=== PATIENT | female | born 1975 | race Caucasian/White ===

== ENCOUNTER → 2021-02-23 | Outpatient (CLI) | payer OTHER | LOC: KOH-I 15:26 | DX: M79.672 Pain in left foot (principal) | CPT/HCPCS: 73630 ==

== ENCOUNTER → 2021-05-25 | Outpatient (CLI) | payer OTHER | LOC: KOH-I 16:05 | DX: M77.41 Metatarsalgia, right foot (principal) | CPT/HCPCS: 73718 ==